=== PATIENT | female | born 1970 | race African-American/Black ===

== ENCOUNTER 2019-06-11 05:09 | Emergency (ER) | payer OTHER ==
[~2019-06-11] VITALS: Ht 162.6 cm; Wt 68.5 kg
[2019-06-11 06:20] LABS: ABSOLUTE NEUTROPHILS 2.7 thou/uL (1.4-8.2); BASOPHILS 0.3 % (0.0-2.0); EOSINOPHILS 0.1 % (0.0-3.0); HEMOGLOBIN 13.1 gm/dL (12.0-15.0); LYMPHOCYTES 15.7 % (24.0-44.0); MCH 27.1 pg (26.0-34.0); MCHC 32.7 g/dL (28.0-37.0); MCV 82.9 fL (80.0-100.0); PLATELET COUNT 149 thou/uL (150-400); POLYS 77.9 % (36.0-66.0); RBC 4.83 mil/uL (4.20-5.00); RDW 13.9 % (10.5-14.5); WBC 3.5 thou/uL (4.0-11.0)
[2019-06-11 06:43] LABS: ALBUMIN 3.8 g/dL (3.4-5.0); CALCIUM 8.6 mg/dL (8.5-10.1); CREATININE 0.6 mg/dL (0.6-1.0); TOTAL BILIRUBIN 0.3 mg/dL (<0.1-1.0); TOTAL PROTEIN 7.7 g/dL (6.4-8.2)
--- NOTE | 2019-06-11 08:03 | EKG ---
[place] [address] [facility] [place] [address] ELECTROCARDIOGRAM REPORT Name: WHIT SANABRIA [facility] [id number] Admission: 06/11/19 Attend Phys: Discharge: Date of : 68 Report #: [id number] THIS REPORT FOR: //name// [facility] ED Test Date: 2019-06-11 Test Time: 07:10:03 Pat Name: WHIT SANABRIA Department: Room: Gender: F Medical Claims Manager: RAYNE : 1970 Requested By: Henrry Grajeda Order Number: [id number] MD: Gage Cuhrchill Measurements Intervals [place] Rate: 58 P: 36 OK: 192 QRS: 11 QRSD: 84 T: 38 QT: 418 QTc: 411 Interpretive Statements Sinus rhythm Nonspecific T abnormalities, anterior leads No previous ECG available for comparison Electronically Signed On 06-11-2019 8:02:30 [employer] by Gage Churchill [email or web address] <ELECTRONICALLY SIGNED> By: Gage Churchill MD 06/11/19 0802 [id number] 9 Gage Churchill MD /VIPUL
[2019-06-11 09:12] VITALS: BP 188/83
== END 2019-06-11 09:20 | disposition home or self-care (01) ==
LOC: ER 05:09
PROVIDERS: Emergency Medicine Emergency Medical Services
DX: B34.9 Viral infection, unspecified (principal); R11.2 Nausea with vomiting, unspecified; I10 Essential (primary) hypertension; F17.210 Nicotine dependence, cigarettes, uncomplicated; Z98.51 Tubal ligation status